=== PATIENT | female | born 1935 | race Caucasian/White ===

== ENCOUNTER 2016-11-02 18:30 | Inpatient (IN) | payer OTHER ==
[~2016-11-02] VITALS: Ht 152.4 cm; Wt 77.1 kg
[~2016-11-02 18:30] MED LIST: AMLODIPINE5 M1 PO; AMP500 PO; ASPIR 8181 MG PO; CARVEDILOL6.25 M1 PO; COL100 PO; LAC PO; LOVASTATIN40 MG PO; MEDDP PO; NORCO1 TA2 PO; NOVOLIN 70/3010 ML; PRINIVIL40 MG PO
[2016-11-02 19:01] LABS: BASOPHIL % 0.8 % (0-2); PLATELET COUNT 193 x10^3mcL (130-400); RED CELL DISTRIBUTION WIDTH 13.9 % (11.5-14.5)
[2016-11-02 19:09] LABS: CALCIUM 8.2 mg/dL (8.5-10.1); CHLORIDE SERUM 109 mmol/L (98-107); CREATININE SERUM 1.4 mg/dL (0.6-1.0); GLUCOSE SERUM 181 mg/dL (74-106); POTASSIUM SERUM 5.2 mmol/L (3.5-5.1); SODIUM SERUM 139 mmol/L (136-145)
[2016-11-02 19:15] LABS: ALKALINE PHOSPHATASE 122 U/L (46-116); ALT/SGPT 20 U/L (14-59); AST/SGOT 29 U/L (15-37); BILIRUBIN TOTAL 0.41 mg/dL (0.20-1.00); TOTAL PROTEIN, SERUM 6.9 g/dL (6.4-8.2)
[2016-11-02 19:17] LABS: ALBUMIN 2.9 g/dL (3.4-5.0)
[2016-11-02 22:38] LABS: T3 TOTAL 1.2 ng/mL
[2016-11-02 22:54] LABS: MAGNESIUM 2.2 mg/dL (1.8-2.4); PHOSPHOROUS 4.3 mg/dL (2.5-4.9)
[2016-11-02 22:56] LABS: CHOLESTEROL/HDL RATIO 2.6
[2016-11-02 23:02] LABS: FREE T4 1.26 ng/dL (0.76-1.46); FREE THYROXINE INDEX 3.7 ug/dL (1.4-4.5); T4(THYROXINE) 10.9 ug/dL (4.7-13.3)
[2016-11-02 23:03] VITALS: BP 150/46
[2016-11-03 05:58] VITALS: BP 152/46
[2016-11-03 06:09] LABS: BASOPHIL % 0.4 % (0-2); PLATELET COUNT 217 x10^3mcL (130-400); RED CELL DISTRIBUTION WIDTH 13.6 % (11.5-14.5)
[2016-11-03 06:23] LABS: CALCIUM 9.1 mg/dL (8.5-10.1); CARBON DIOXIDE 22.9 mmol/L (21-32); CHLORIDE SERUM 109 mmol/L (98-107); CREATININE SERUM 1.8 mg/dL (0.6-1.0); GLUCOSE SERUM 233 mg/dL (74-106); MAGNESIUM 2.5 mg/dL (1.8-2.4); PHOSPHOROUS 5.3 mg/dL (2.5-4.9); POTASSIUM SERUM 4.8 mmol/L (3.5-5.1); SODIUM SERUM 143 mmol/L (136-145)
[2016-11-03 10:24] VITALS: BP 139/48
[2016-11-03 14:19] VITALS: BP 127/42
[2016-11-03] MEDS ORDERED: AMP500 PO (17:21)
[2016-11-03 18:10] VITALS: BP 127/42
== END 2016-11-03 19:42 | disposition home or self-care (01) | DRG 205 ==
LOC: ED 18:30 → DU 21:51
PROVIDERS: Emergency Medicine; ADMIT Family Medicine
DX: M94.0 Chondrocostal junction syndrome [Tietze] (principal); N17.0 Acute kidney failure with tubular necrosis; E44.0 Moderate protein-calorie malnutrition; D68.69 Other thrombophilia; J90 Pleural effusion, not elsewhere classified; J81.1 Chronic pulmonary edema; I35.0 Nonrheumatic aortic (valve) stenosis; I25.10 Atherosclerotic heart disease of native coronary artery without angina pectoris; E11.59 Type 2 diabetes mellitus with other circulatory complications; E11.51 Type 2 diabetes mellitus with diabetic peripheral angiopathy without gangrene; E11.65 Type 2 diabetes mellitus with hyperglycemia; I10 Essential (primary) hypertension; E87.5 Hyperkalemia; M46.04 Spinal enthesopathy, thoracic region; E66.9 Obesity, unspecified; Z68.33 Body mass index [BMI] 33.0-33.9, adult; Z79.4 Long term (current) use of insulin; Z79.82 Long term (current) use of aspirin
CPT/HCPCS: 82962; 83880; 84439; 87804; J1815; J1940; J1956; J2405; J2765; J3490; Q0092